=== PATIENT | female | born 2000 | race Caucasian/White ===

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

== ENCOUNTER 2022-02-25 21:06 | Emergency (ER) | payer OTHER ==
[2022-02-25] MEDS ORDERED: NA CHLORIDE 0.9% 1,000 ML ONE (21:25)
[2022-02-25] MEDS ORDERED: ONDANSETRON 4 MG/2 ML VIAL ONE (21:25)
[2022-02-25 21:43] LABS: Absolute Lymphocytes (CBC) 1.1 K/uL (0.7-4.9); Hematocrit 38.3 % (36.0-45.0); Lymphocytes % 22.3 % (15.3-44.8); MCV 86.7 fL (80-100); MPV 8.6 fL (7.6-11.3); RBC Red Blood Cell Count 4.42 M/uL (3.86-4.86)
[2022-02-25 21:56] LABS: Albumin 4.3 g/dL (3.4-5.0); Bilirubin Total 0.8 mg/dL (0.2-1.0); Potassium 3.3 mmol/L (3.5-5.1); Protein, Total 8.1 g/dL (6.4-8.2)
[2022-02-25 22:38] LABS: Urine Blood Negative (Negative); Urine Glucose Negative (Negative); Urine Protein 1+ (Negative); Urine Specific Gravity 1.025 (1.005-1.030)
[2022-02-25] MEDS ORDERED: POTASSIUM CL SA 10 MEQ TAB PO ONE (22:41)
--- NOTE | 2022-02-25 22:51 | ER ---
Nurse's Notes [facility] Name: Grazyna Mann Age: 21 yrs Sex: Female : 2000 Arrival Date: 02/25/2022 Time: 21:10 Bed 17 Private MD: Diagnosis: Influenza due to identified novel influenza A virus-B Presentation: 02/25 21:22 Chief complaint: Patient states: C/o N/V/D since Saturday, denies fevers at home. ll3 Coronavirus screen: Vaccine status: Patient reports receiving the 2nd dose of the covid vaccine. diarrhea, nausea, vomiting. Ebola Screen: No symptoms or risks identified at this time. Initial Sepsis Screen: Does the patient meet any 2 criteria? No. Patient's initial sepsis screen is negative. Does the patient have a suspected source of infection? No. Patient's initial sepsis screen is negative. Risk Assessment: Do you want to hurt yourself or someone else? Patient reports no desire to harm self or others. Onset of symptoms was February 23, 2022. 21:22 Method Of Arrival: Ambulatory 3 21:22 Acuity: EDUARDO 3 ll3 Triage Assessment: 21:25 General: Appears comfortable, Behavior is calm, cooperative. Pain: Denies pain. Neuro: ll3 Level of Consciousness is awake, alert, obeys commands, Oriented to person, place, time, situation. GI: Abdomen is round non-distended, Bowel sounds present X 4 quads. Abd is soft and non tender X 4 quads. Reports diarrhea, nausea, vomiting, since 2 days ago Patient currently denies abdominal pain. Derm: Skin is pink, warm \T\ dry. 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 - Social history:: Smoking status: Patient denies any tobacco usage or history of. Screenin:35 Abuse screen: Denies threats or abuse. Denies injuries from another. Nutritional hb screening: No deficits noted. Tuberculosis screening: No symptoms or risk factors identified. Fall Risk None identified. Assessment: 21:36 General: Appears in no apparent distress. Behavior is calm, cooperative. Pain: Denies hb pain. Neuro: Level of Consciousness is awake, alert, obeys commands, Oriented to person, place, time, situation. Cardiovascular: Patient's skin is warm and dry. Respiratory: Respiratory effort is even, unlabored, Respiratory pattern is regular, symmetrical. GI: Reports diarrhea, nausea, vomiting. : No signs and/or symptoms were reported regarding the genitourinary system. EENT: No signs and/or symptoms were reported regarding the EENT system. Derm: Skin is pink, warm \T\ dry. Musculoskeletal: No signs and/or symptoms reported regarding the musculoskeletal system. 22:29 Reassessment: Patient appears in no apparent distress at this time. Patient and/or hb family updated on plan of care and expected duration. Pain level reassessed. Patient is alert, oriented x 3, equal unlabored respirations, skin warm/dry/pink. Vital Signs: 21:22 BP 115 / 73; Pulse 111; Resp 17; Temp 98.9(O); Pulse Ox 99% on R/A; Weight 68.04 kg ll3 (R); Height 5 ft. 5 in. (165.10 cm) (R); Pain 0/10; 21:36 BP 103 / 80; Pulse 104; Resp 15; Pulse Ox 99% on R/A; hb 22:29 BP 120 / 85; Pulse 86; Resp 17; Pulse Ox 98% on R/A; hb 21:22 Body Mass Index 24.96 (68.04 kg, 165.10 cm) ll3 ED Course: 20:00 Patient has correct armband on for positive identification. hb 21:10 Patient arrived in ED. ja2 21:10 [facility] Law[facility]C [facility] kb 21:10 Chaka Suarez MD is Attending Physician. kb 21:21 Melissa Lerner, JAMEL is Primary Nurse. hb 21:24 Inserted saline lock: 20 gauge in right antecubital area, using aseptic technique. hb Blood collected. 21:25 Triage completed. ll3 21:25 Arm band placed on. ll3 23:02 No provider procedures requiring assistance completed. IV discontinued, intact, hb bleeding controlled, No redness/swelling at site. Administered Medications: 21:33 Drug: NS 0.9% 1000 ml Route: IV; Rate: 1 bolus; Site: right antecubital; hb 21:33 Drug: Zofran (Ondansetron) 4 mg Route: IVP; Site: right antecubital; hb 22:35 Drug: Potassium Chloride 20 mEq Route: PO; ll3 Medication: 23:02 VIS not applicable for this client. hb Outcome: 22:51 Discharge ordered by . leo 23:02 Discharged to home ambulatory. hb 23:02 Condition: stable 23:02 Discharge instructions given to patient, Instructed on discharge instructions, follow up and referral plans. medication usage, Demonstrated understanding of instructions, follow-up care, medications, Prescriptions given X 1. 23:02 Patient left the ED. hb Signatures: Lola Lawton, TUMBLING BARREL PAINTER-C TUMBLING BARREL PAINTER-Melissa Brennan, RN RN Windy Zambrano [place], RN RN ll3
--- NOTE | 2022-02-25 22:51 | EDPHYS ---
Physician Documentation [facility] Name: Grazyna Mann Age: 21 yrs Sex: Female : 2000 Arrival Date: 02/25/2022 Time: 21:10 Bed 17 Private MD: ED Physician Chaka Suarez HPI: 02/25 21:15 This 21 yrs old Female presents to ER via Unassigned with complaints of Fever, kb Nausea/Vomiting/Diarrhea. 21:15 The patient presents to the emergency department with nausea, vomiting, diarrhea. kb Onset: The symptoms/episode began/occurred 2 day(s) ago. Possible causes: unknown. The symptoms are aggravated by nothing. The symptoms are alleviated by nothing. Associated signs and symptoms: Pertinent positives: diarrhea, fever, nausea, vomiting. Severity of symptoms: At their worst the symptoms were moderate in the emergency department the symptoms are unchanged. The patient has not experienced similar symptoms in the past. The patient has not recently seen a physician. Patient reports nausea, vomiting and diarrhea, fever and fatigue that started 2 to 3 days ago got worse today. Denies abdominal pain.. 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 - Social history:: Smoking status: Patient denies any tobacco usage or history of. ROS: 21:15 ENT: Negative for injury, pain, and discharge. kb 21:15 Constitutional: Positive for fatigue, fever. 21:15 Abdomen/GI: Positive for nausea, vomiting, and diarrhea, Negative for abdominal pain. 21:15 All other systems are negative. Exam: 21:15 Constitutional: This is a well developed, well nourished patient who is awake, alert, kb and in no acute distress. Head/Face: Normocephalic, atraumatic. ENT: Moist Mucous membranes Cardiovascular: Regular rate and rhythm with a normal S1 and S2. No gallops, murmurs, or rubs. No pulse deficits. Respiratory: Respirations even and unlabored. No increased work of breathing. Talking in full sentences Abdomen/GI: Soft, non-tender. No distention Skin: Warm, dry with normal turgor. Normal color. MS/ Extremity: Pulses equal, no cyanosis. Neurovascular intact. Full, normal range of motion. Neuro: Awake and alert, GCS 15, oriented to person, place, time, and situation. Moves all extremities. Normal gait. Psych: Awake, alert, with orientation to person, place and time. Behavior, mood, and affect are within normal limits. Vital Signs: 21:22 BP 115 / 73; Pulse 111; Resp 17; Temp 98.9(O); Pulse Ox 99% on R/A; Weight 68.04 kg ll3 (R); Height 5 ft. 5 in. (165.10 cm) (R); Pain 0/10; 21:36 BP 103 / 80; Pulse 104; Resp 15; Pulse Ox 99% on R/A; hb 22:29 BP 120 / 85; Pulse 86; Resp 17; Pulse Ox 98% on R/A; hb 21:22 Body Mass Index 24.96 (68.04 kg, 165.10 cm) ll3 MDM: 21:14 Patient medically screened. kb 21:16 Data reviewed: vital signs, nurses notes. Data interpreted: Pulse oximetry: on room air kb is 100 %. Interpretation: normal. 22:51 Counseling: I had a detailed discussion with the patient and/or guardian regarding: the kb historical points, exam findings, and any diagnostic results supporting the discharge/admit diagnosis, lab results, radiology results, the need for outpatient follow up, a family practitioner, to return to the emergency department if symptoms worsen or persist or if there are any questions or concerns that arise at home. 02/25 21:15 Order name: CBC with Diff; Complete Time: 21:54 kb 02/25 21:15 Order name: CMP; Complete Time: 21:58 kb 02/25 21:15 Order name: Lipase; Complete Time: 21:58 kb 02/25 21:15 Order name: Flu; Complete Time: 22:13 kb 02/25 21:15 Order name: COVID-19 SARS RT PCR (Document "Date of Onset" if Symptomatic); Complete kb Time: 22:41 02/25 22:39 Order name: Urine Dipstick-Ancillary; Complete Time: 22:41 EDMS 02/25 21:15 Order name: IV Saline Lock; Complete Time: 21:33 kb 02/25 21:15 Order name: Labs collected and sent; Complete Time: 21:33 kb 02/25 21:15 Order name: Urine Dipstick-Ancillary (obtain specimen); Complete Time: 22:39 kb 02/25 21:15 Order name: Urine Test (obtain specimen); Complete Time: 22:39 kb 02/25 22:43 Order name: Urine --Ancillary (enter results) mw2 Administered Medications: 21:33 Drug: NS 0.9% 1000 ml Route: IV; Rate: 1 bolus; Site: right antecubital; hb 21:33 Drug: Zofran (Ondansetron) 4 mg Route: IVP; Site: right antecubital; hb 22:35 Drug: Potassium Chloride 20 mEq Route: PO; ll3 Disposition Summary: 02/25/22 22:51 Discharge Ordered Location: Home kb Condition: Stable kb Diagnosis - Influenza due to identified novel influenza A virus - B kb Followup: kb - With: Emergency Department - When: As needed - Reason: Worsening of condition Followup: kb - With: Private Physician - When: 2 - 3 days - Reason: Recheck today's complaints, Continuance of care, Re-evaluation by your physician Discharge Instructions: - Discharge Summary Sheet kb - Influenza, Adult, [id number] kb Forms: - Medication Reconciliation Form kb - Thank You Letter kb - Antibiotic Education kb - Prescription Opioid Use kb Prescriptions: - Zofran 4 mg Oral Tablet - take 1 tablet by ORAL route every 6 hours As needed; 10 tablet; Refills: 0, kb Product Selection Permitted Signatures: Dispatcher [employer] Lola Duke, ISAAK BROWERP-Melissa Brennan, RN RN Ritika Ram, RN RN ll3
[2022-02-25 23:08] LABS: Urine Specific Gravity/Preg 1.025 (1.005-1.030)
[2022-02-25 23:26] VITALS: TEMP 98.9
[2022-02-25 23:30] VITALS: BP 120/85; O2SAT 98
== END 2022-02-25 23:02 | disposition home or self-care (01) ==
LOC: ER 21:06
DX: J10.1 Influenza due to other identified influenza virus with other respiratory manifestations (principal); Z20.822 Contact with and (suspected) exposure to COVID-19; J45.909 Unspecified asthma, uncomplicated
CPT/HCPCS: 36415; 80053; 81003; 81025; 83690; 85025; 87804; 96374; 99284; J2405; J7030; U0003